=== PATIENT | male | born 1950 | race Caucasian/White ===

== ENCOUNTER 2022-05-12 07:49 | Day surgery (SDC) | payer OTHER ==
[2022-05-12] MEDS ORDERED: PROPOFOL 160 ML ONE (08:02)
[2022-05-12] MEDS ORDERED: LIDOCAINE HCL/PF 2% SDV 5ML VIAL ONE (08:03)
[2022-05-12 08:11] VITALS: BMI 27.1
[2022-05-12 09:13] VITALS: RESP 16; TEMP 98
[2022-05-12 09:53] VITALS: BP 112/63; PULSE 74
== END 2022-05-12 10:06 | disposition home or self-care (01) ==
LOC: FASU-ENDO 07:49
PROVIDERS: ATTEND Student in an Organized Health Care Education/Training Program
PROC: 0DB98ZX Excision of Duodenum, Via Natural or Artificial Opening Endoscopic, Diagnostic (ICD-10-PCS; 2022-05-12)
PROC: 0DB68ZX Excision of Stomach, Via Natural or Artificial Opening Endoscopic, Diagnostic (ICD-10-PCS; 2022-05-12)
PROC: 0DBK8ZX Excision of Ascending Colon, Via Natural or Artificial Opening Endoscopic, Diagnostic (ICD-10-PCS; principal; 2022-05-12 08:26)
DX: D64.9 Anemia, unspecified (principal); K64.8 Other hemorrhoids; D12.2 Benign neoplasm of ascending colon; K55.20 Angiodysplasia of colon without hemorrhage; K29.50 Unspecified chronic gastritis without bleeding; I85.00 Esophageal varices without bleeding; K76.6 Portal hypertension
CPT/HCPCS: 82962; 88305-TC; 88342-TC

== ENCOUNTER 2023-03-19 10:12 | Day surgery (SDC) | payer OTHER, MEDICARE ==
[2023-03-19 14:51] VITALS: BP 152/64; PULSE 77; RESP 18; TEMP 98.1
== END 2023-03-19 15:00 | disposition home or self-care (01) ==
LOC: FBLOOD 10:12 → FM/S 10:13 → FBLOOD 15:00
PROVIDERS: ATTEND Family Medicine Geriatric Medicine
PROC: 30233N1 Transfusion of Nonautologous Red Blood Cells into Peripheral Vein, Percutaneous Approach (ICD-10-PCS; principal; 2023-03-19)
DX: D64.89 Other specified anemias (principal)
CPT/HCPCS: 36415; 36430; 80053; 85027; P9058

== ENCOUNTER 2023-07-02 05:26 | Emergency (ER) | payer OTHER, MEDICARE ==
[2023-07-02 05:43] VITALS: BP 159/78; PULSE 73; RESP 18; TEMP 98; BMI 27.5
[2023-07-02 07:47] LABS: BASO % 1.3 % (0-2.0); EOS % 1.9 % (0-4.5); HEMATOCRIT 37.5 % (35.4-49); HEMOGLOBIN 11.7 GM/dL (11.7-16.9); LYMPH % 13.7 % (8-40); MCH 24.2 pg (25.7-33.7); MCHC 31.2 g/dl (32.0-35.9); MEAN CELL VOLUME 77.7 fl (80-96); MEAN PLT VOLUME 8.7 fl (7.5-11.1); MONO % 11.6 % (3.8-10.2); NEUT % 71.5 % (42.8-82.8); RBC 4.83 M/mm3 (4.00-5.60); RDW 26.7 % (11.9-15.9); WHITE BLOOD COUNT 2.9 K/mm3 (4.0-10.0)
[2023-07-02 08:20] LABS: BILIRUBIN,TOTAL 2.8 mg/dL (0.2-1); BLOOD UREA NITROGEN 13.3 mg/dL (7-18); CALCIUM 7.7 mg/dL (8.5-10.1); CREATININE 0.5 mg/dL (0.55-1.3); POTASSIUM 3.7 mmol/L (3.5-5.1); TOT PROT 5.7 g/dl (6.4-8.2)
[2023-07-02 08:23] LABS: INR 1.38 (0.83-1.09); PROTHROMBIN TIME (PATIENT) 15.4 SEC (9.7-13.0)
[2023-07-02 08:46] LABS: ANISOCYTOSIS 2+; MACROCYTOSIS 0
[2023-07-02 08:55] LABS: PLATELET COUNT 49 10^3/uL (134-434)
== END 2023-07-02 08:33 | disposition home or self-care (01) ==
LOC: EDBD 05:26 → FER 05:26
DX: S00.01XA Abrasion of scalp, initial encounter (principal); W01.198A Fall on same level from slipping, tripping and stumbling with subsequent striking against other object, initial encounter
CPT/HCPCS: 36415; 70450-TC; 80053; 85025; 85610; 99284-25

== ENCOUNTER 2023-12-10 08:09 | Observation (INO) | payer OTHER, MEDICARE ==
[2023-12-10] MEDS: SODIUM CHLORIDE 0.9% 500 ML INFUS.BAG IV ONE (08:10)
[2023-12-10] MEDS: ALBUTEROL SO4 2.5/IPRATROPIUM 0.5 INH SOL 3 ML VIAL.NEB. NEB ONE (08:10)
[2023-12-10] MEDS: FAMOTIDINE 20 MG/50 ML IVPB 20 MG/50 ML MG IVPB ONE (08:12)
[2023-12-10] MEDS: methylPREDNISolone NA SUCC 125 MG/2 ML VIAL IVPUSH ONE (08:20)
[2023-12-10 08:28] VITALS: BMI 27.8
[2023-12-10] MEDS ORDERED: methylPREDNISolone NA SUCC 125 MG/2 ML VIAL ONE (08:34)
[2023-12-10] MEDS ORDERED: ALBUTEROL SO4 2.5/IPRATROPIUM 0.5 INH SOL 3 ML VIAL.NEB. NEB ONE (08:34)
[2023-12-10] MEDS ORDERED: FAMOTIDINE 20 MG/50 ML IVPB 20 MG/50 ML MG IVPB ONE (08:34)
[2023-12-10] MEDS: IBUPROFEN 800 MG/8 ML IJ IVPB ONE (08:36)
[2023-12-10] MEDS ORDERED: ALBUTEROL SO4 0.083% IH SOL 2.5 MG/3 ML VIAL.NEB. NEB ONE (09:11)
[2023-12-10 09:13] LABS: HEMATOCRIT 53.2 % (35.4-49); HEMOGLOBIN 15.5 G/dL (11.7-16.9); MCH 25.3 pg (25.7-33.7); MCHC 29.2 g/dl (32.0-35.9); MEAN CELL VOLUME 86.8 fl (80-96); MEAN PLT VOLUME 10.4 fl (7.5-11.1); PLATELET COUNT 95.1 10^3/uL (134-434); RBC 6.13 10^6/uL (4.00-5.60); RDW 20.8 % (11.9-15.9); WHITE BLOOD COUNT 10.1 10^3/uL (4.0-10.8)
[2023-12-10 09:18] LABS: PLATELET ESTIMATE DECREASED
[2023-12-10 09:30] LABS: ALBUMIN 4.5 g/dl (3.4-5.0); BILIRUBIN,TOTAL 4.5 mg/dl (0.2-1); CALCIUM 8.6 mg/dl (8.5-10.1); CREATININE 0.8 mg/dl (0.6-1.3); TOT PROT 7.3 g/dl (6.4-8.2)
[2023-12-10 09:31] LABS: POTASSIUM 4.3 mmol/L (3.5-5.1)
[2023-12-10] MEDS ORDERED: AMPICILLIN NA/SULBACTAM NA 1.5 GM VIAL ONE (09:38)
[2023-12-10] MEDS: AMPICILLIN NA/SULBACTAM NA 1.5 GM in SODIUM CHLORIDE 100 ML IVPB ONE (09:49)
[2023-12-10] MEDS: SODIUM CHLORIDE 1,000 ML IV SCH (13:54)
[2023-12-10] MEDS: ALBUTEROL SO4 2.5/IPRATROPIUM 0.5 INH SOL 3 ML VIAL.NEB. NEB SCH (14:54)
[2023-12-10] MEDS: methylPREDNISolone NA SUCC 40 MG/1 ML VIAL IVPUSH SCH (17:20)
[2023-12-10] MEDS: AMPICILLIN NA/SULBACTAM NA 3 GM in SODIUM CHLORIDE 100 ML IVPB SCH (17:20)
[2023-12-10] MEDS: AZITHROMYCIN IVPB 500 MG/250 ML BAG IVPB ONE (17:30)
[2023-12-10] MEDS: LACTULOSE 20 GM/30 ML UDC (FOR ORAL USE ONLY) PO SCH (19:40)
[2023-12-10] MEDS: TAMSULOSIN HCL 0.4 MG CAP PO SCH (21:42)
[2023-12-10] MEDS: INSULIN ASPART SLIDING SCALE (NOVOLOG) 1 VIAL SQ SCH (21:42)
[2023-12-10] MEDS: MIRTAZAPINE 15 MG TABLET (FP) PO SCH (21:42)
[2023-12-10] MEDS: ALPRAZolam 2 MG TABLET PO PRN (21:55)
[2023-12-10 22:10] VITALS: BP 134/54; PULSE 89; RESP 17; TEMP 98.2
[2023-12-11] MEDS ORDERED: AZITHROMYCIN IVPB 250 MG in DEXTROSE 5%-WATER - 250 ML IVPB SCH (10:00)
[2023-12-11] MEDS ORDERED: EMPAGLIFLOZIN (JARDIANCE) 10 MG TABLET PO SCH (10:00)
[2023-12-11] MEDS ORDERED: PANTOPRAZOLE 40 MG TABLET PO SCH (10:00)
[2023-12-12] MEDS ORDERED: ARIPiprazole 2 MG TABLET PO SCH (10:00)
== END 2023-12-10 22:17 | disposition left against medical advice (07) ==
LOC: EDBD → FER 08:09 → MERGE 12:15 → FM/S 12:15
PROVIDERS: ADMIT Internal Medicine; ATTEND Internal Medicine
PROC: 3E0F7GC Introduction of Other Therapeutic Substance into Respiratory Tract, Via Natural or Artificial Opening (ICD-10-PCS; principal; 2023-12-10)
PROC: 3E03329 Introduction of Other Anti-infective into Peripheral Vein, Percutaneous Approach (ICD-10-PCS; 2023-12-10)
PROC: 3E033GC Introduction of Other Therapeutic Substance into Peripheral Vein, Percutaneous Approach (ICD-10-PCS; 2023-12-10)
PROC: 3E013VG Introduction of Insulin into Subcutaneous Tissue, Percutaneous Approach (ICD-10-PCS; 2023-12-10)
PROC: 3E0337Z Introduction of Electrolytic and Water Balance Substance into Peripheral Vein, Percutaneous Approach (ICD-10-PCS; 2023-12-10)
DX: J69.0 Pneumonitis due to inhalation of food and vomit (principal); J96.01 Acute respiratory failure with hypoxia; D69.6 Thrombocytopenia, unspecified; J45.41 Moderate persistent asthma with (acute) exacerbation; C80.1 Malignant (primary) neoplasm, unspecified; I48.91 Unspecified atrial fibrillation; K22.0 Achalasia of cardia
CPT/HCPCS: 0241U-QW; 36415; 71045-TC-FY; 71275-TC; 80053; 81003; 82962; 84484; 85027; 87040; 87086; 87899; 93005; 94640; 96361; 96365; 96367; 96372; 96375; 96376; 99285-25; G0378; Q9967